=== PATIENT | female | born 1940 | race Two or more races ===

== ENCOUNTER 2019-08-30 11:23 | Emergency (ER) | payer OTHER ==
[~2019-08-30] VITALS: Ht 157.5 cm; Wt 62.6 kg
[2019-08-30] MEDS ORDERED: LEVO-T75 MCG (11:46)
[2019-08-30] MEDS ORDERED: ATACAND4 MG (11:46)
== END 2019-08-30 17:22 | disposition home or self-care (01) ==
LOC: ER 11:23
DX: S00.83XA Contusion of other part of head, initial encounter (principal); R55 Syncope and collapse; W18.09XA Striking against other object with subsequent fall, initial encounter; Y93.89 Activity, other specified; Y92.017 Garden or yard in single-family (private) house as the place of occurrence of the external cause; Y99.8 Other external cause status